=== PATIENT | female | born 1960 | race Caucasian/White ===

== ENCOUNTER → 2019-07-09 16:40 | Outpatient (BNVA) | payer OTHER, SELFPAY | PROVIDERS: Family Provider Registered Nurse; PCP Registered Nurse; Visit Provider Registered Nurse | DX: I10 Essential (primary) hypertension (principal); Z00.00 Encounter for general adult medical examination without abnormal findings | CPT/HCPCS: 80053; 80061; 85025 ==

== ENCOUNTER → 2021-02-25 11:42 | Outpatient (BNVA) | payer BC, SELFPAY | PROVIDERS: Family Provider Registered Nurse; PCP Registered Nurse; Visit Provider Registered Nurse | DX: Z01.419 Encounter for gynecological examination (general) (routine) without abnormal findings (principal) | CPT/HCPCS: 87624 ==

== ENCOUNTER 2021-05-01 10:13 | Outpatient (CLI) | payer BC, SELFPAY ==
--- NOTE | 2021-05-01 10:30 | MM_ITS ---
WS: [id number] Bilateral screening digital mammogram, 05/01/2021 Clinical Data: Z12.31 - Encounter for screening mammogram for malignant ... Comparison: 06/14/2018, 09/05/2013, 05/18/2010. Findings: The breast parenchymal pattern shows fibroglandular tissue No spiculated masses or clustered calcific ations are seen. There are no secondary signs of carcinoma. MM/[place] [id number] Impression: 1. Negative bilateral mammogram unchanged. 2. Recommend annual screening mammograms. BIRADS: 1-Negative FOLLOW UP: 1 Year Follow-up The CAD counter checker was used.
== END 2021-05-01 10:14 | disposition home or self-care (01) ==
LOC: RADSHAW 10:16
PROVIDERS: PCP Registered Nurse; Visit Provider Registered Nurse
DX: Z12.31 Encounter for screening mammogram for malignant neoplasm of breast (principal)
CPT/HCPCS: 77067

== ENCOUNTER → 2021-05-06 09:34 | Outpatient (BNVA) | payer BC, SELFPAY | PROVIDERS: PCP Registered Nurse; Visit Provider Registered Nurse | DX: Z20.822 Contact with and (suspected) exposure to COVID-19 (principal); Z11.52 Encounter for screening for COVID-19 | CPT/HCPCS: 87631; 87635 ==

== ENCOUNTER 2024-02-14 06:30 | Outpatient (RCR) | payer OTHER, SELFPAY | END 2024-03-15 23:59 | disposition home or self-care (01) | LOC: WPT 06:30 | PROVIDERS: Visit Provider Podiatrist Foot & Ankle Surgery | DX: M79.673 Pain in unspecified foot (principal) | CPT/HCPCS: 97161 ==

== ENCOUNTER → 2024-02-14 11:41 | Outpatient (BNVA) | payer OTHER, SELFPAY | PROVIDERS: PCP Registered Nurse; Visit Provider Registered Nurse | DX: Z78.9 Other specified health status (principal) | CPT/HCPCS: 80053; 80061; 85025; 87624 ==

== ENCOUNTER → 2024-02-28 14:30 | Outpatient (BNVA) | payer OTHER, SELFPAY | PROVIDERS: PCP Registered Nurse; Visit Provider Podiatrist Foot & Ankle Surgery | DX: M79.671 Pain in right foot (principal); M79.672 Pain in left foot; M25.371 Other instability, right ankle; M20.11 Hallux valgus (acquired), right foot; M20.12 Hallux valgus (acquired), left foot | CPT/HCPCS: 73630 ==

== ENCOUNTER 2024-03-15 10:39 | Outpatient (CLI) | payer OTHER, SELFPAY ==
--- NOTE | 2024-03-15 10:40 | MM_ITS ---
WS: [id number] Bilateral screening 3D tomosynthesis digital mammogram, 03/15/2024 10:46 AM Clinical Data: Z12.31 - Encounter for screening mammogram for malignant ... Comparison: 05/01/2021, 06/14/2018, 09/05/2013, 05/18/2010. Findings: No spiculated masses or clustered calcifications are seen. There are no secondary signs of carcinoma . MM/MM scr BI tomosynthesis [id number] Impression: Negative bilateral mammogram unchanged. Recommend annual screening mammograms. BIRADS: 1 - Negative. FOLLOW UP: 1 Year Follow-up DENSITY: There are scattered areas of fibroglandular density. The CAD bad cloth checker was used
== END 2024-03-15 10:40 | disposition home or self-care (01) ==
LOC: MOBLMAM 10:43
PROVIDERS: PCP Registered Nurse; Visit Provider Registered Nurse
DX: Z12.31 Encounter for screening mammogram for malignant neoplasm of breast (principal)
CPT/HCPCS: 77063; 77067

== ENCOUNTER 2024-03-16 06:00 | Outpatient (RCR) | payer OTHER, SELFPAY | END 2024-04-14 23:59 | disposition home or self-care (01) | LOC: WPT 06:00 | PROVIDERS: Visit Provider Podiatrist Foot & Ankle Surgery | DX: M25.373 Other instability, unspecified ankle (principal) | CPT/HCPCS: 97110; 97112; 97140; 97530 ==

== ENCOUNTER 2024-04-15 06:00 | Outpatient (RCR) | payer OTHER, SELFPAY | END 2024-05-15 23:59 | disposition home or self-care (01) | LOC: WPT 06:00 | PROVIDERS: Visit Provider Podiatrist Foot & Ankle Surgery | DX: M25.373 Other instability, unspecified ankle (principal) | CPT/HCPCS: 97110; 97112; 97140; 97530 ==

== ENCOUNTER 2024-07-30 05:54 | Day surgery (SDC) | payer OTHER, SELFPAY ==
[2024-07-30] VITALS (10 sets, daily range): BP systolic 120–160; BP diastolic 76–100; PULSE 71–80; RESP 13–18; TEMP 36.1–36.9; O2SAT 93–97; BMI 33.2
--- NOTE | 2024-07-30 | XR_ITS ---
WS: [id number] Exam: XR foot RT 2V [id number] Date/Time of Exam: 07/30/2024 12:00 AM Reason For Exam: ARASH PICS Intraoperative AP and lateral images of the RIGHT forefoot are submitted. There is an osteotomy with screw fixation involving the first metatarsal. There is also an osteotomy of the first proximal phalanx with screw fixation. Axial wires extend through the second through the fourth toes and ends in the distal metatarsals.
[2024-07-30] MEDS: sodium chloride 0.9% 1,000 ML 30 ML IV (06:20)
[2024-07-30] MEDS: CELEcoxib 200 mg Capsule 400 MG PO (06:27)
[2024-07-30] MEDS: gabapentin 300 mg Capsule PO (06:28)
--- NOTE | 2024-07-30 06:52 | W.PM.OPSUD ---
Surgery/Procedure H&P Update DATE OF PROCEDURE: July 30, 2024 DATE H&P PERFORMED: 07/25/24 H&P UPDATE INFORMATION: I have reviewed H&P completed within last 30 days, I have examined patient prior to procedure, No changes to prior documentation and H&P is in [facility] EMR on date indicated PREOP DIAGNOSIS: right hallux valgus, hammertoes, tailor's bunion PLANNED PROCEDURE: Operation Date: 07/30/24 07:00 Proposed Procedures p Derrick Esparza bunionectomy(Right) - Juan Esparza DPM s second hammertoe repair PIPJ arthrodesis, third hammertoe repair PIPJ arthrodesis, fourth hammertoe repair PIPJ arthrodesis(Right) - Juan Esparza DPM s second digit flexor to extensor tendon transfer,third digit flexor to extensor tendon transfer,fourth digit flexor to extensor tendon transfer and(Right) - Juan Esparza DPM s second metatarsal Mark osteotomy(Right) - Juan Esparza DPM s fifth metatarsal tailor's bunionectomy(Right) - Juan Esparza DPM
--- NOTE | 2024-07-30 06:55 | P.ANESASSM_ITS ---
Pre-Anesthetic Assessment Height/Weight: Height 1.52 m Weight 77.111 kg Temp Pulse Resp BP Pulse Ox O2 Del Method 98.5 F 74 18 151/100 95 Room Air 07/30/24 06:08 07/30/24 06:08 07/30/24 06:08 07/30/24 06:08 07/30/24 06:08 07/30/24 06:34 Preop Diagnosis: right hallux valgus, hammertoes, tailor's bunion Operation Date: 07/30/24 07:00 Proposed Procedures p Derrick [place] bunionectomy(Right) - Juan Esparza DPM s second hammertoe repair PIPJ arthrodesis, third hammertoe repair PIPJ arthrodesis, fourth hammertoe repair PIPJ arthrodesis(Right) - Juan Esaprza DPM s second digit flexor to extensor tendon transfer,third digit flexor to extensor tendon transfer,fourth digit flexor to extensor tendon transfer and(Right) - Juan Esparza DPM s second metatarsal Mark osteotomy(Right) - Juan Esparza DPM s fifth metatarsal tailor's bunionectomy(Right) - Juan Esparza DPM Familial anesthetic complications: None Was Beta Guadalupe taken within 24 hours: N/A Was Clonidine taken within 24 hours: N/A Last intake: Intake Last Liquid Date 07/29/24 Last Liquid Time 21:00 Last Solid Date 07/29/24 Last Solid Time 21:00 Social Tobacco and No alcohol Exam alert, oriented x 3, clear to auscultation bilaterally and regular rate & rhythm Airway Mallampati: Class III Dentition: full CV/HEM Hypertension Anesthetic Plan ASA status: 2 Anesthesia: General Risk of > 500 ml blood loss (7ml/kg in children): No Other Pertinent Information patient declines nerve block Medications/Allergies Home Medications ?Medication ?Instructions ?Recorded ?Confirmed ?Last Taken ?Type valacyclovir 1 gram tablet 1,000 mg PO DAILY PRN recur rent 02/25/21 07/30/24 07/16/24 Rx cold sores #90 tabs amlodipine 5 mg tablet 5 mg PO DAILY 90 days #90 ta bs 02/28/24 07/26/24 07/30/24 04:00 Rx lisinopril 20 See Rx Instructions .Route 1 07/26/24 07/29/24 Rx mg-hydrochlorothiazide 25 mg tablet .COMPLEX #90 tabs DME: Walker #1 ea 07/25/24 07/26/24 Unkn own Rx knee scooter #1 ea 07/25/24 07/26/24 Unkn own Rx hydrocodone 5 mg-acetaminophen 325 1 tab PO Q6H PRN pa in #28 tabs 07/30/24 Unknown Rx mg tablet Allergies Allergy/AdvReac Type Severity Reaction Status Date / Time Penicillins Allergy Severe tongue Verified 07/26/24 16:50 swelling Current Medications Generic Name Dose Route Start Last Admin Trade Name Freq PRN Reason Stop Dose Admin Sodium Chloride 1,000 mls @ 30 mls/hr 07/30/24 06:15 07/30/24 06:20 Sodium Chloride 0.9% IV 07/31/24 06:14 30 mls/hr .Q24H SADIE Administration PFSH Anesthesia Medical History Recurrent genital herpes Nail fungus Hypertension Social History Smoking and tobacco/nicotine status: current every day tobacco/nicotine user (less that 1/2 pack) cigarettes [ Other cigarette details: 1/2 ppd] Alcohol intake: never Substance/Drug Use: never Adopted: No Caregiver/support person: No Lives independently: No Household members: spouse Sexually active: Yes Do you think of yourself as: Straight/Heterosexual Current gender identity: Female Data Anesthesia 07/30/24 06:20 Cardiac Studies: 2 No Data to Display
[2024-07-30 07:04] LABS: Blood Urea Nitrogen 17 mg/dL (8-23); Calcium 9.4 mg/dL (8.5-10.5); Carbon Dioxide 26 mmol/L (22-29); Chloride 101 mmol/L (98-107); Creatinine Clr Calc Pharmacy 107.0826; Glucose 95 mg/dL (65-115); Osmolality Calculated 285 mOsm/kg (285-295); Sodium 137 mmol/L (136-145)
[2024-07-30 07:17] LABS: Anion Gap 13.9 (5-19); Potassium 3.9 mmol/L (3.5-5.1)
[2024-07-30] MEDS: clindamycin 600 MG/50 ML PREMIX 100 MG IV (07:24)
[2024-07-30] MEDS: BUPivacaine 0.5% INJ 30 mL XX (07:56)
--- NOTE | 2024-07-30 10:06 | P.BOP_ITS ---
Date of procedure: 07/30/24 Surgeon name: Dr. Juan Esparza DPM Lotus Notes Administrator(s) name(s): Sree Kitchen Procedure(s) performed: 1. Right foot Derrick bunionectomy 2. Right foot Wagner osteotomy 3. Right foot hammertoe repair 2 through 4 with flexor to extensor tendon transfer Description of findings: Right foot hallux valgus deformity Estimated blood loss: 5 cc Tourniquet time: 1 hour 51 minutes Specimen(s) removed: None Post-operative diagnosis: Right hallux valgus
--- NOTE | 2024-07-30 10:09 | P.OP_ITS ---
Operative Report Date of procedure: July 30, 2024 Surgeon: Juan Esparza DPM Procedure: Date of procedure: 07/30/24 Pre-op diagnosis: Right foot hallux valgus, hammertoes 2-4 Post-op diagnosis: same Post-op findings: Right foot hallux valgus and hammertoes lesser digits Procedure done: 1. Right foot Derrick [place] bunionectomy CPT 33755 2. Right foot second hammertoe repair PIPJ arthrodesis CPT 75422 3. Right foot second digit flexor to extensor tendon transfer CPT 32015 4. Right foot third hammertoe repair PIPJ arthrodesis CPT 80914 5. Right foot fourth hammertoe repair PIPJ arthrodesis CPT 09264 Implants: 4.0 and 3.5 headless compression screws. 2.7 headless compression screw all from arthrex. 0.045 k-wire x 3 Specimens removed: none Surgeon: Dr. Juan Esparza DPM Spun Paste Machine Operator: Sree Kitchen Estimated blood loss: 5cc Tourniquet time: 1s99yen Complications: none Patient is a 64-year-old female that has a history of right hallux valgus and hammertoes 2-4. The patient has had the aforementioned chief complaint for some time. Conservative treatment measures have been attempted and the patient has opted for surgical intervention at this time. A lengthy discussion regarding the procedure, including risks and complications has been had with the patient and is noted in the recent clinic note. Written and verbal consent have been obtained. All patient questions have been answered to the patient?s satisfaction. No written or verbal guarantees have been given or implied. The patient has been NPO since midnight. The history has been reviewed and the history and physical is current. The signed consent was confirmed and placed in the patient chart. Patient imaging has been reviewed and is consistent with the diagnosis. Under mild sedation, the patient was brought into the operating room and placed on the table in the supine position. IV antibiotics were given by the anesthesia team as preoperative surgical prophylaxis. General sedation was then performed by the anesthesiateam. A pneumatic tourniquet was then placed about the right ankle. The operative extremity was then prepped and draped in the usual fashion. The extremity was then elevated and exsanguinated before the tourniquet was inflated to 250mmHg. After inflation, the following procedure was then performed. Attention was directed to the right foot where a notable hallux valgus formerly was noted with adjacent hammertoes. A 15 blade was used to make a stab incision at the level of the first metatarsal neck. Claritza bur was inserted into an incision and a transverse osteotomy was made through the metatarsal neck of the first metatarsal. The capital fragment was translated laterally in the transverse plane into the appropriate anatomic position. 2 guidewires were driven from proximal medial to distal lateral across the osteotomy site to maintain position. Next, a 4.0 cannulated screw was inserted over the proximal wire after being drilled. Good positioning of the screw was noted. A 3.5 millimeter screw was then inserted over the distal wire across the osteotomy site after being drilled. Good position of the screws noted. It was determined at this point the patient would benefit from an [place] osteotomy. Stab incision was made using #15 blade to the distal medial aspect of the proximal phalanx. Claritza bur was inserted into the incision and an [place] osteotomy was performed. Guidewire was driven across the osteotomy site for proximal medial to distal lateral. A 2.5 headless compression screw was then inserted over the wire across the osteotomy site. Good positioning was noted. Attention was then directed to the adjacent second digit where a 4 cm incision was made using a #15 blade. Dissection was carried down to subcutaneous superficial fascia to the level of the extensor tendon which was transected transversely. The proximal interphalangeal joint was released of medial and lateral collateral ligaments. Head of the proximal phalanx and base of the intermediate phalanx were resected using sagittal bone saw. Flexor tendon transfer was then performed by finding long flexor of the second digit. It was transected transversely as distal as possible before being split longitudinally and wraparound to the dorsal aspect of the second digit. 2-0 Ethibond was then used to secure the flexor tendon on the dorsal aspect of the proximal phalanx. A 0.045 K wire was then driven through the base of the intermediate phalanx at the distal aspect of the toe before being driven in retrograde fashion back into the proximal phalanx. The wire was then advanced into the metatarsal head to maintain fixation. Extensor tendon was then repaired using 3-0 Vicryl. It was determined that a Mark osteotomy would not be appropriate after repair of the hallux valgus deformity. Attention was then directed to the third and fourth digits where a 4 cm incision was made using a #15 blade over the proximal interphalangeal joint. Dissection was carried down through subcutaneous superficial fascia to the extensor tendon which was transected transversely. The proximal interphalangeal joint of both the third and fourth digit were released using a #15 blade. A sagittal bone saw was then used to resect the proximal interphalangeal joint of both digits. Flexor tendon transfer was not warranted for the third or fourth digits of the right foot. A 0.045 K wire was driven into the base of the intermediate phalanx of the third and fourth digit before being driven retrograde fashion back into the proximal phalanx. Good position of the wires was noted clinically as well as on C-arm imaging. The tips of all wires were then bent and capped in standard fashion. All incisions were irrigated with copious amounts of sterile saline before attention was directed to closure. Extensor tendons were repaired using 3-0 Vicryl. All incisions were closed using 4-0 nylon in horizontal mattress fashion. The tourniquet was let down and good hyperemic response was noted to all digits of the right foot. The incision sites were dressed with Xeroform, 4 x 4 gauze, Kerlix, Miguel. The patient tolerated the procedure and anesthesia well and without complication. The patient was transported from the operating room to the recovery room with vital signs stable and vascular status intact to all digits of the right foot. The patient was given both written and verbal instructions to remain weight bearing as tolerated in CAM boot to the operative extremity, to keep dressings/splint clean, dry and intact and to take pain medication as directed. The patient will follow-up in the outpatient setting at their sche duled appointment. The patient was discharged with my personal number and was instructed to call if any questions or issues should arise. They were discharged home once anesthesia criteria was met.
[2024-07-30] MEDS: HYDROcodone-acetaminophen 5-325 mg Tablet 1 TAB PO (11:01)
--- NOTE | 2024-07-30 11:35 | ANE.PACU2 ---
Inpatient post-anesthesia follow up: Airway intact: Yes Vital signs: Temperature 97 F Pulse Rate 80 Respiratory Rate 18 Blood Pressure 139/80 Pulse Oximetry 97 Oxygen Delivery Me thod Room Air Oxygen Flow Rate 6 Fraction of Inspir ed Oxygen Hydration adequate: Yes Nausea and vomiting: No Pain level: 1 Mental status: Baseline
== END 2024-07-30 11:34 | disposition home or self-care (01) ==
PROVIDERS: Anesthesiology; PCP Registered Nurse; Visit Provider Podiatrist Foot & Ankle Surgery
PROC: (CPT 28296; principal; 2024-07-30 07:00)
PROC: (CPT 28285; 2024-07-30 07:00)
PROC: (CPT 28299; 2024-07-30 07:00)
DX: M20.11 Hallux valgus (acquired), right foot (principal); M20.41 Other hammer toe(s) (acquired), right foot; M21.621 Bunionette of right foot; F17.210 Nicotine dependence, cigarettes, uncomplicated; I10 Essential (primary) hypertension; Z79.899 Other long term (current) drug therapy; Z88.0 Allergy status to penicillin
CPT/HCPCS: 28299; 27690; 28285 ×3; 36415; 73620; 76000; 80048; C1713 ×2; J1100; J1171; J1885; J2250; J2405; J2704; J2795; J3010; J3490; J7030; J9999

== ENCOUNTER → 2024-08-13 15:15 | Outpatient (BNVA) | payer OTHER, SELFPAY | PROVIDERS: PCP Registered Nurse; Visit Provider Podiatrist Foot & Ankle Surgery | DX: M21.621 Bunionette of right foot (principal); M20.41 Other hammer toe(s) (acquired), right foot; M20.42 Other hammer toe(s) (acquired), left foot; M79.671 Pain in right foot; M20.11 Hallux valgus (acquired), right foot | CPT/HCPCS: 73630 ==

== ENCOUNTER → 2024-08-27 13:49 | Outpatient (BNVA) | payer OTHER, SELFPAY | PROVIDERS: PCP Registered Nurse; Visit Provider Podiatrist Foot & Ankle Surgery | DX: M21.621 Bunionette of right foot (principal); M20.10 Hallux valgus (acquired), unspecified foot; M20.41 Other hammer toe(s) (acquired), right foot; M20.42 Other hammer toe(s) (acquired), left foot | CPT/HCPCS: 73630 ==

== ENCOUNTER → 2024-09-10 12:46 | Outpatient (BNVA) | payer OTHER, SELFPAY | PROVIDERS: PCP Registered Nurse; Visit Provider Podiatrist Foot & Ankle Surgery | DX: Z98.890 Other specified postprocedural states (principal); M79.671 Pain in right foot; M20.10 Hallux valgus (acquired), unspecified foot; M20.41 Other hammer toe(s) (acquired), right foot; M20.42 Other hammer toe(s) (acquired), left foot; M21.621 Bunionette of right foot | CPT/HCPCS: 73630 ==

== ENCOUNTER 2024-10-14 05:00 | Outpatient (RCR) | payer OTHER, SELFPAY | END 2024-11-12 23:59 | disposition home or self-care (01) | LOC: WPT 05:00 | PROVIDERS: PCP Registered Nurse; Visit Provider Podiatrist Foot & Ankle Surgery | DX: M20.41 Other hammer toe(s) (acquired), right foot (principal); M20.42 Other hammer toe(s) (acquired), left foot | CPT/HCPCS: 97110; 97112; 97140; 97530 ==

== ENCOUNTER → 2024-10-22 13:32 | Outpatient (BNVA) | payer OTHER, SELFPAY | PROVIDERS: PCP Registered Nurse; Visit Provider Podiatrist Foot & Ankle Surgery | DX: Z98.890 Other specified postprocedural states (principal); M20.41 Other hammer toe(s) (acquired), right foot; M20.42 Other hammer toe(s) (acquired), left foot; M21.621 Bunionette of right foot; M20.10 Hallux valgus (acquired), unspecified foot | CPT/HCPCS: 73630 ==

== ENCOUNTER 2024-11-13 05:00 | Outpatient (RCR) | payer OTHER, SELFPAY | END 2024-12-13 23:59 | disposition home or self-care (01) | LOC: WPT 05:00 | PROVIDERS: PCP Registered Nurse; Visit Provider Podiatrist Foot & Ankle Surgery | DX: M20.41 Other hammer toe(s) (acquired), right foot (principal); M20.42 Other hammer toe(s) (acquired), left foot; M21.621 Bunionette of right foot; M20.10 Hallux valgus (acquired), unspecified foot; Z98.890 Other specified postprocedural states | CPT/HCPCS: 97110; 97112; 97140; 97530 ==

== ENCOUNTER → 2024-11-19 14:08 | Outpatient (BNVA) | payer OTHER, SELFPAY | PROVIDERS: PCP Registered Nurse; Visit Provider Podiatrist Foot & Ankle Surgery | DX: M79.671 Pain in right foot (principal); Z98.890 Other specified postprocedural states; M20.11 Hallux valgus (acquired), right foot; M20.41 Other hammer toe(s) (acquired), right foot; M20.42 Other hammer toe(s) (acquired), left foot; M21.621 Bunionette of right foot; B35.1 Tinea unguium | CPT/HCPCS: 73630 ==

== ENCOUNTER 2025-01-01 11:37 | Outpatient (CLI) | payer OTHER, SELFPAY | END 2025-01-01 11:38 | disposition home or self-care (01) | LOC: SPT 11:37 | PROVIDERS: PCP Registered Nurse; Visit Provider Podiatrist Foot & Ankle Surgery | DX: Z46.89 Encounter for fitting and adjustment of other specified devices (principal); M20.10 Hallux valgus (acquired), unspecified foot; M20.41 Other hammer toe(s) (acquired), right foot; M20.42 Other hammer toe(s) (acquired), left foot | CPT/HCPCS: L3030 ==

== ENCOUNTER → 2025-03-19 13:30 | Outpatient (BNVA) | payer OTHER, SELFPAY | PROVIDERS: PCP Registered Nurse; Visit Provider Podiatrist Foot & Ankle Surgery | DX: M79.672 Pain in left foot (principal); M20.12 Hallux valgus (acquired), left foot; M20.41 Other hammer toe(s) (acquired), right foot; M20.42 Other hammer toe(s) (acquired), left foot; M21.621 Bunionette of right foot; B35.1 Tinea unguium | CPT/HCPCS: 73630 ==

== ENCOUNTER 2025-04-22 05:40 | Day surgery (SDC) | payer OTHER, SELFPAY ==
[2025-04-22] VITALS (10 sets, daily range): BP systolic 154–168; BP diastolic 89–104; PULSE 63–72; RESP 15–18; TEMP 36.1–36.7; O2SAT 95–100; BMI 33.2
--- NOTE | 2025-04-22 05:58 | ANES.PREANE2 ---
Pre-Anesthetic Assessment Height/Weight: Height 5 ft Weight 170 lb Temp Pulse Resp BP Pulse Ox O2 Del Method 97.2 F L 71 18 165/91 96 Room Air 04/22/25 05:52 04/22/25 05:52 04/22/25 05:52 04/22/25 05:52 04/22/25 05:52 04/22/25 05:55 Preop Diagnosis: Bunion Operation Date: 04/22/25 07:00 Proposed Procedures p Wagner Osteotomy LEFT Foot(Left) - Juan Esparza DPM s LEFT Foot 2nd, 3rd, 4th, and 5th DIGIT Proximal Interphalangeal (PIP) Toe Joint Arthrodesis(Left) - Juan Esparza DPM s LEFT Foot Tailors Bunionectomy(Left) - Juan Esparza DPM s Left foot 2nd, 3rd, and 4th Digit Flexor to Extensor Tendon Transfer(Left) - Juan Esparza DPM Was Beta Guadalupe taken within 24 hours: N/A Was Clonidine taken within 24 hours: N/A Last intake: Intake Last Liquid Date 04/21/25 Last Liquid Time 19:00 Last Solid Date 04/21/25 Last Solid Time 19:00 Social Tobacco and No alcohol Exam alert, oriented x 3, clear to auscultation bilaterally and regular rate & rhythm Airway Submandibular: within normal limits Cervical ROM: within normal limits Mallampati: Class III Dentition: full Anesthetic Plan ASA status: 2 Anesthesia: General Other: No prior issues with anesthesia Patient was with us for similar procedure earlier this year and did well History of hypertension on lisinopril?HCTZ. Preop BP 165/91 BNP ordered Plan for general anesthesia with local via surgeon Medications/Allergies Home Medications ?Medication ?Instructions ?Recorded ?Confirmed ?Last Taken ?Type valacyclovir 1 gram tablet 1,000 mg PO DAILY PRN recurrent 02/25/21 04/18/25 07/16/24 Rx cold sores #90 tabs DME: Walker #1 ea 07/25/24 03/19/25 Unknown Rx knee scooter #1 ea 07/25/24 03/19/25 Unknown Rx Custom Sole Supports #1 ea 10/22/24 03/19/25 Unknown Rx ciclopirox 8 % topical solution 1 applic topical DAILY 4 weeks 11/19/24 04/18/25 04/20/25 Rx #6.6 mL amlodipine 5 mg tablet 5 mg PO DAILY 04/18/25 04/18/25 04/21/25 History lisinopril 20 1 tab PO DAILY 04/18/25 04/18/25 04/21/25 History mg-hydrochlorothiazide 25 mg tablet Allergies Allergy/AdvReac Type Severity Reaction Status Date / Time Penicillins Allergy Severe tongue Verified 04/18/25 10:41 swelling [facility] Anesthesia Medical History Recurrent genital herpes Nail fungus Hypertension Social History Smoking and tobacco/nicotine status: current every day tobacco/nicotine user cigarettes [ Other cigarette details: 05/17 ppd] Alcohol intake: never Substance/Drug Use: never Adopted: No Caregiver/support person: No Lives independently: No Household members: spouse Sexually active: Yes Do you think of yourself as: Straight/Heterosexual Current gender identity: Female Data Anesthesia 04/22/25 06:08
--- NOTE | 2025-04-22 06:43 | W.PM.OPSFHP ---
Same Day Surgery H&P Indication for Procedure/HPI DATE OF PROCEDURE: April 22, 2025 CHIEF COMPLAINT/INDICATIONFOR SURGICAL PROCEDURE: Left foot bunion and hammertoes PREOP DIAGNOSIS: Bunion PLANNED PROCEDURE: Operation Date: 04/22/25 07:00 Proposed Procedures p Wagner Osteotomy LEFT Foot(Left) - MARIKA West LEFT Foot 2nd, 3rd, 4th, and 5th DIGIT Proximal Interphalangeal (PIP) Toe Joint Arthrodesis(Left) - MARIKA West LEFT Foot Tailors Bunionectomy(Left) - MARIKA West Left foot 2nd, 3rd, and 4th Digit Flexor to Extensor Tendon Transfer(Left) - Juan Esparza DPM Medications/Allergies* Home Medications ?Medication ?Instructions ?Recorded ?Confirmed ?Type amlodipine 5 mg tablet 5 mg PO DAILY 04/18/25 04/18/25 History lisinopril 20 1 tab PO DAILY 04/18/25 04/18/25 History mg-hydrochlorothiazide 25 mg tablet Allergies/Adverse Reactions Allergy/AdvReac Type Severity Reaction Status Date / Time Penicillins Allergy Severe tongue Verified 04/18/25 10:41 swelling Current Medications: Generic Name Dose Route Start Last Admin Trade Name Freq PRN Reason Stop Dose Admin Sodium Chloride 1,000 mls @ 30 mls/hr 04/22/25 05:45 04/22/25 06:05 Sodium Chloride 0.9% IV 04/23/25 05:44 30 mls/hr .Q24H SADIE Administration Pertinent History/Comorbid Conditions* Medical History (Updated 07/26/24 @ 14:44 by Juan Esparza DPM) Recurrent genital herpes Nail fungus Hypertension Social History Smoking and tobacco/nicotine status: current every day tobacco/nicotine user cigarettes [ Other cigarette details: 05/17 ppd] Alcohol intake: never Substance/Drug Use: never Adopted: No Caregiver/support person: No Lives independently: No Household members: spouse Sexually active: Yes Do you think of yourself as: Straight/Heterosexual Current gender identity: Female Pertinent Exam Findings alert, oriented x 3, clear to auscultation bilaterally, regular rate & rhythm, operative site marked and procedure specific exam findings BELOW IS A FOCUSED LOWER EXTREMITY EXAM VASCULAR: DP/PT pulses palpable 2/4 bilaterally with capillary refill time less than 3 seconds to distal digits. No edema or varicosities noted. DERMATOLOGICAL: Skin temperature and turgor within normal limits. No open wounds or ulcerations noted. Mild dorsal hyperkeratotic lesions overlying the PIP joints of digits 2?5 consistent with chronic shoe friction. Nails are normotrophic. No signs of infection. MUSCULOSKELETAL: Left foot demonstrates residual mild hallux valgus with HAV angle measuring 13 degrees. First tarsometatarsal joint arthrodesis site well-healed and stable with intact hardware. Hammertoe contractures present to digits 2?5, with rigid proximal interphalangeal joint contractures of digits 2?4 and flexible contracture of the fifth digit. Mild crossover tendency of the second digit. Forefoot loading reveals increased pressure at distal metatarsal heads 2?4. No instability or crepitus at the first ray. Ankle and subtalar range of motion within normal limits. Muscle strength 5/5 in all quadrants. NEUROLOGICAL: Protective sensation intact via 10g monofilament to L4?S1 dermatomes. No Tinel or Valleix?s sign elicited. Deep tendon reflexes symmetrical. IMAGIN-view x-rays of the left foot were taken at today?s visit and independently interpreted by me. These reveal increased HAV angle of 13 degrees with well-consolidated arthrodesis site at the first tarsometatarsal joint and intact orthopedic hardware. Hammertoe deformities noted to digits 2?5 with contracture at the PIP joints and mild metatarsophalangeal joint subluxation of the second toe. No acute osseous abnormality. Recommendations Surgery/Procedure today Coding Level of Care Code Acute Code for Chg Fwd
[2025-04-22 06:49] LABS: Anion Gap 14.9 (5-19); Blood Urea Nitrogen 17 mg/dL (8-23); Calcium 9.2 mg/dL (8.5-10.5); Carbon Dioxide 26 mmol/L (22-29); Chloride 101 mmol/L (98-107); Glucose 103 mg/dL (65-115); Osmolality Calculated 288 mOsm/kg (285-295); Potassium 3.9 mmol/L (3.5-5.1); Sodium 138 mmol/L (136-145)
[2025-04-22] MEDS: BUPivacaine 0.5% INJ 30 mL INJECTION (07:22)
--- NOTE | 2025-04-22 08:49 | P.BOP_ITS ---
Date of procedure: 04/22/25 Surgeon name: Dr. Juan Esparza, DPM Senior Data Warehouse Developer(s) name(s): See intraop documentation Procedure(s) performed: Left karla osteotomy, hammertoe repair 2-4 Description of findings: hallux valgus, hammertoes left foot Estimated blood loss: 5cc Tourniquet time: see intraop documentation Specimen(s) removed: none Post-operative diagnosis: same
--- NOTE | 2025-04-22 09:01 | P.OP_ITS ---
Operative Report Date of procedure: April 22, 2025 Surgeon: Juan Esparza DPM Procedure: Date of procedure: 04/22/2025 Pre-op diagnosis: Left foot hallux valgus, hammertoes 2 through 4 Post-op diagnosis: Same Post-op findings: Left foot hallux valgus deformity with hammertoes 2 through 4 Procedure done: 1. Left foot [place] osteotomy CPT 40855 2. Left foot second to proximal interphalangeal joint arthrodesis CPT 59277 3. Left foot third digit proximal interphalangeal joint arthrodesis CPT 38814 4. Left foot fourth digit proximal interphalangeal joint arthrodesis CPT 48642 5. Left foot third digit flexor to extensor tendon transfer CPT 42997 Implants: 2.5 x 32 mm headless compression screw Arthrex TheraVida, 0.045 K wire x 3 Specimens removed: None Surgeon: Dr. Juan Esparza DPM Multi Needle Machine Operator: See intraoperative documentation Estimated blood loss: 5 cc Tourniquet time: See intraoperative documentation Complications: None Patient is a 64-year-old female that has a history of left foot hallux valgus deformity and hammertoes. The patient has had the aforementioned chief complaint for some time. Conservative treatment measures have been attempted and the patient has opted for surgical intervention at this time. A lengthy discussion regarding the procedure, including risks and complications has been had with the patient and is noted in the recent clinic note. Written and verbal consent have been obtained. All patient questions have been answered to the patient?s satisfaction. No written or verbal guarantees have been given or implied. The patient has been NPO since midnight. The history has been reviewed and the history and physical is current. The signed consent was confirmed and placed in the patient chart. Patient imaging has been reviewed and is consistent with the diagnosis. Under mild sedation, the patient was brought into the operating room and placed on the table in the supine position. IV antibiotics were given by the anesthesia team as preoperative surgical prophylaxis. General sedation was then performed by the anesthesiateam. A pneumatic tourniquet was then placed about the left ankle. The operative extremity was then prepped and draped in the usual fashion. The extremity was then elevated and exsanguinated before the tourniquet was inflated to 250 mmHg. After inflation, the following procedure was then performed. Attention was directed to the left hallux where a #15 blade was used to make a stab incision to the medial aspect at the level of the hallux interphalangeal joint. Mosquito hemostat was used to bluntly dissect down to the level of the proximal phalanx. Next a Claritza bur 2 mm was inserted into the incision and an osteotomy was made through the proximal phalanx and [place] osteotomy fashion. Enough resection was performed to reduce the hallux to an appropriate anatomic position. A guidewire was then driven across the osteotomy site and drilled before a 2.5 x 32 mm headless compression screw was inserted across the osteotomy site. Good position of the screw was noted under C-arm fluoroscopy. Attention was directed to the adjacent second digit where a 4 cm incision was made using a #15 blade. Dissection was carried down to subcutaneous the superficial fascia to the level of the extensor digitorum longus tendon which was transected transversely at the level of the proximal interphalangeal joint. Sagittal bone saw was used to make osseous cut just proximal to the proximal interphalangeal joint. Second digit was then reduced to an appropriate anatomic position before a 0.045 K wire was driven antegrade out the distal aspect of the digit before being driven in retrograde fashion back and of the proximal phalanx and into the second metatarsal head. Attention was directed to the adjacent third digit where a 4 cm incision was made using #15 blade. Dissection was carried down through subcutaneous and superficial fascia to the level of the extensor digitorum longus tendon which was transected transversely at the level of the proximal to phalangeal joint. Sagittal bone saw was used to remove the articular cartilage from the head of the proximal phalanx and base of the intermediate phalanx. Dissection was carried down through plantar soft tissues to expose the long flexor to the third digit. This was isolated and transected as transversely as possible before being split longitudinally and wraparound to the dorsum of the proximal phalanx. A 0.045 K wire was then driven in antegrade fashion at the distal aspect of the toe before being driven in retrograde fashion back into the proximal phalanx and into the third metatarsal head. Good positioning of the digit was noted. 2-0 Ethibond was used to tenodesed the long flexor on the dorsal aspect of the proximal phalanx. It was also tenodesed to the long extensor tendon as it was repaired. Attention was directed to the adjacent fourth digit where a 4 cm incision was made using a #15 blade. Dissection was carried down through subcutaneous the superficial fascia to the level of the extensor tendon at the level of the proximal phalangeal joint which was transected transversely. Sagittal bone saw was used to remove the articular cartilage from the head of the proximal phalanx and base of the intermediate phalanx. Toe was placed in a more appropriate anatomic position and 0.045 K wire was driven antegrade out the distal aspect of the digit and then retrograded into the proximal phalanx and fourth metatarsal head. Good positioning of the wires and screw were visualized on C-arm fluoroscopy. Incisions were irrigated with sterile saline. Attention was directed to closure. Extensor tendons were repaired using 2-0 Ethibond and skin was closed with 4-0 nylon in horizontal mattress fashion. Wires were bent and capped with Gallo ball. Tourniquet was let down and good hyperemic response was noted to all digits of the left foot. Incisions were dressed with Xeroform, 4 x 4 gauze, Kerlix, Miguel bandage. Patient was placed in a cam boot. The patient tolerated the procedure and anesthesia well and without complication. The patient was transported from the operating room to the recovery room with vital signs stable and vascular status intact to all digits of the left foot. The patient was given both written and verbal instructions to remain weightbearing as tolerated in cam boot to the operative extremity, to keep dressings/splint clean, dry and intact and to take pain medication as directed. The patient will follow-up in the outpatient setting at their scheduled appointment. The patient was discharged with my personal number and was instructed to call if any questions or issues should arise. They were discharged home once anesthesia criteria was met.
--- NOTE | 2025-04-22 10:07 | ANE.PACU2 ---
Inpatient post-anesthesia follow up: Airway intact: Yes Vital signs: Temperature 97 F Pulse Rate 72 Respiratory Rate 18 Blood Pressure 164/89 Pulse Oximetry 98 Oxygen Delivery Me thod Room Air Oxygen Flow Rate 8 Fraction of Inspir ed Oxygen Hydration adequate: Yes Nausea and vomiting: No Pain level: 1 Mental status: Baseline
== END 2025-04-22 10:07 | disposition home or self-care (01) ==
PROVIDERS: Student in an Organized Health Care Education/Training Program; PCP Registered Nurse; Visit Provider Podiatrist Foot & Ankle Surgery
PROC: (CPT 28298; principal; 2025-04-22 07:00)
PROC: (CPT 28298; 2025-04-22 07:00)
PROC: 0QBP0ZZ Excision of Left Metatarsal, Open Approach (ICD-10-PCS; CPT 28110; 2025-04-22 07:00)
PROC: (CPT 28298; 2025-04-22 07:00)
DX: M20.12 Hallux valgus (acquired), left foot (principal); M20.42 Other hammer toe(s) (acquired), left foot; I10 Essential (primary) hypertension; F17.210 Nicotine dependence, cigarettes, uncomplicated; B35.1 Tinea unguium
CPT/HCPCS: 28298; 27690; 28285 ×3; 76000; 80048; C1713; J1100; J2250; J2371; J2405; J2704; J3010; J3490; J7030; J9999

== ENCOUNTER → 2025-05-06 13:49 | Outpatient (BNVA) | payer OTHER, SELFPAY | PROVIDERS: PCP Registered Nurse; Visit Provider Podiatrist Foot & Ankle Surgery | DX: Z98.890 Other specified postprocedural states (principal); M21.621 Bunionette of right foot; M20.41 Other hammer toe(s) (acquired), right foot; M20.42 Other hammer toe(s) (acquired), left foot; B35.1 Tinea unguium | CPT/HCPCS: 73630 ==